=== PATIENT | female | born 1950 | race Caucasian/White ===

== ENCOUNTER 2017-10-04 12:00 | Emergency (ER) | payer OTHER | END 2017-10-04 12:29 | disposition home or self-care (01) | LOC: E/R 12:00 | DX: M25.561 Pain in right knee (principal) | CPT/HCPCS: 99283 ==

== ENCOUNTER 2018-01-27 11:41 | Emergency (ER) | payer OTHER | END 2018-01-27 13:32 | disposition home or self-care (01) | LOC: FTE 11:41 | DX: S93.401A Sprain of unspecified ligament of right ankle, initial encounter (principal); F17.210 Nicotine dependence, cigarettes, uncomplicated; X58.XXXA Exposure to other specified factors, initial encounter; Y92.9 Unspecified place or not applicable | CPT/HCPCS: 73610; 73610-RT; 73630; 99283-25 ==